=== PATIENT | female | born 1950 | race Caucasian/White ===

== ENCOUNTER 2023-04-17 08:14 | Day surgery (SDC) | payer OTHER ==
[2023-04-13 09:47] VITALS: BMI 30.2
[2023-04-17] MEDS ORDERED: KETOROLAC TROMETHAMINE 0.5% EYE DROP 1 DROP DROPS ONE (08:19)
[2023-04-17] MEDS ORDERED: PHENYLEPHRINE 2.5% OPTHALMIC DROP 2ML BOTTLE ONE (08:19)
[2023-04-17] MEDS ORDERED: TROPICAMIDE 1% OPHTH SOLN 15 ML BOTTLE ONE (08:19)
[2023-04-17] MEDS ORDERED: OFLOXACIN 0.3% OPHTHALMIC SOLUTION 5 ML BOTTLE ONE (08:19)
[2023-04-17] MEDS ORDERED: CYCLOPENTOLATE HCL 1% OPHTH SOLN 2 ML BOTTLE ONE (08:20)
[2023-04-17] MEDS: OFLOXACIN 0.3% OPHTHALMIC SOLUTION 5 ML BOTTLE OS SCH (08:35)
[2023-04-17] MEDS: PHENYLEPHRINE 2.5% OPHTH SOLN 15 ML BOTTLE OS SCH (08:35)
[2023-04-17] MEDS: CYCLOPENTOLATE HCL 1% OPHTH SOLN 2 ML BOTTLE OS SCH (08:35)
[2023-04-17] MEDS: KETOROLAC TROMETHAMINE 0.5% EYE DROP 1 DROP DROPS OS SCH (08:35)
[2023-04-17] MEDS: TROPICAMIDE 1% OPHTH SOLN 15 ML BOTTLE OS SCH (08:35)
[2023-04-17] MEDS ORDERED: ACETAMINOPHEN 325 MG TABLET (FP) PO PRN (08:35)
[2023-04-17 08:36] VITALS: TEMP 97
[2023-04-17] MEDS ORDERED: BACITRACIN/POLYMYXIN OPH OINT 3.5 GM TUBE ONE (10:05)
[2023-04-17] MEDS ORDERED: EPINEPHrine/PF 1 MG/1 ML (1:1,000) AMPULE ONE (10:05)
[2023-04-17] MEDS ORDERED: NEO/POLYMYX B SULF/DEXAMETH OPHTHALMIC 5ML BOTTLE ONE (10:06)
[2023-04-17] MEDS ORDERED: BETAXOLOL HCL 0.25% OPHTHALMIC 10 ML DROPSBTL ONE (10:06)
[2023-04-17] MEDS ORDERED: TETRACAINE 0.5% OPHTH SOLN 2 ML BOTTLE ONE (10:06)
[2023-04-17] MEDS ORDERED: POVIDONE-IODINE 5% OPHTHALMIC PREP 30 ML SOLUTION ONE (10:06)
[2023-04-17] MEDS ORDERED: EPI-SHUGARCAINE (EPINEPHRINE 0.025% & LIDOCAINE-PF 0.75%) 4ML ONE (10:06)
[2023-04-17] MEDS ORDERED: MIDAZOLAM HCL 2 MG/2 ML SINGLE DOSE VIAL ONE (11:14)
[2023-04-17 12:29] VITALS: RESP 18
[2023-04-17 12:50] VITALS: BP 125/60; PULSE 69
== END 2023-04-17 12:35 | disposition home or self-care (01) ==
LOC: FASU 08:14
PROVIDERS: ATTEND Ophthalmology
PROC: 08RK3JZ Replacement of Left Lens with Synthetic Substitute, Percutaneous Approach (ICD-10-PCS; principal; 2023-04-17 11:30)
DX: H25.89 Other age-related cataract (principal)
CPT/HCPCS: 66984; V2632

== ENCOUNTER 2023-05-01 08:40 | Day surgery (SDC) | payer OTHER ==
[2023-04-13 09:52] VITALS: BMI 30.2
[2023-05-01] MEDS ORDERED: CYCLOPENTOLATE HCL 1% OPHTH SOLN 2 ML BOTTLE ONE (08:51)
[2023-05-01] MEDS ORDERED: PHENYLEPHRINE 2.5% OPTHALMIC DROP 2ML BOTTLE ONE (08:51)
[2023-05-01] MEDS ORDERED: TROPICAMIDE 1% OPHTH SOLN 15 ML BOTTLE ONE (08:51)
[2023-05-01] MEDS ORDERED: OFLOXACIN 0.3% OPHTHALMIC SOLUTION 5 ML BOTTLE ONE (08:51)
[2023-05-01] MEDS ORDERED: KETOROLAC TROMETHAMINE 0.5% EYE DROP 1 DROP DROPS ONE (08:51)
[2023-05-01] MEDS: OFLOXACIN 0.3% OPHTHALMIC SOLUTION 5 ML BOTTLE OD SCH (09:20)
[2023-05-01] MEDS ORDERED: EPINEPHrine/PF 1 MG/1 ML (1:1,000) AMPULE ONE (09:20)
[2023-05-01] MEDS: PHENYLEPHRINE 2.5% OPHTH SOLN 15 ML BOTTLE OD SCH (09:20)
[2023-05-01] MEDS: TROPICAMIDE 1% OPHTH SOLN 15 ML BOTTLE OD SCH (09:20)
[2023-05-01] MEDS: CYCLOPENTOLATE HCL 1% OPHTH SOLN 2 ML BOTTLE OD SCH (09:20)
[2023-05-01] MEDS: KETOROLAC TROMETHAMINE 0.5% EYE DROP 1 DROP DROPS OD SCH (09:20)
[2023-05-01] MEDS ORDERED: BETAXOLOL HCL 0.25% OPHTHALMIC 10 ML DROPSBTL ONE (09:21)
[2023-05-01] MEDS ORDERED: TETRACAINE 0.5% OPHTH SOLN 2 ML BOTTLE ONE (09:21)
[2023-05-01] MEDS ORDERED: EPI-SHUGARCAINE (EPINEPHRINE 0.025% & LIDOCAINE-PF 0.75%) 4ML ONE (09:21)
[2023-05-01] MEDS ORDERED: NEO/POLYMYX B SULF/DEXAMETH OPHTHALMIC 5ML BOTTLE ONE (09:21)
[2023-05-01] MEDS ORDERED: BACITRACIN/POLYMYXIN OPH OINT 3.5 GM TUBE ONE (09:21)
[2023-05-01] MEDS ORDERED: POVIDONE-IODINE 5% OPHTHALMIC PREP 30 ML SOLUTION ONE (09:21)
[2023-05-01] MEDS ORDERED: MIDAZOLAM HCL 2 MG/2 ML SINGLE DOSE VIAL ONE (10:39)
[2023-05-01 11:47] VITALS: RESP 18; TEMP 97.4
[2023-05-01] MEDS ORDERED: ACETAMINOPHEN 325 MG TABLET (FP) ONE (11:53)
[2023-05-01] MEDS: ACETAMINOPHEN 325 MG TABLET (FP) PO PRN (11:55)
[2023-05-01 12:26] VITALS: BP 130/60; PULSE 74
== END 2023-05-01 12:26 | disposition home or self-care (01) ==
LOC: FASU 08:40
PROVIDERS: ATTEND Ophthalmology
PROC: 08RJ3JZ Replacement of Right Lens with Synthetic Substitute, Percutaneous Approach (ICD-10-PCS; principal; 2023-05-01 11:01)
DX: H25.89 Other age-related cataract (principal)
CPT/HCPCS: 66984; V2632